=== PATIENT | male | born 1965 | race Caucasian/White ===

== ENCOUNTER → 2016-07-15 | Outpatient (CLI) | payer OTHER | END | disposition home or self-care (01) | LOC: YCFC.O 12:51 | DX: M10.9 Gout, unspecified (principal) ==

== ENCOUNTER 2020-05-08 12:17 | Emergency (ER) | payer OTHER ==
--- NOTE | 2020-05-08 13:16 | RAD ---
EXAM DESCRIPTION: Chest,1 View CLINICAL HISTORY: 55 years Male, cough, body aches COMPARISON: None. TECHNIQUE: X-ray 1 view chest upright portable FINDINGS: Lungs are clear. No consolidation. Heart normal size. IMPRESSION: Normal. Electronically signed by: Anup Palma MD 05/08/2020 1:14 PM [facility]
--- NOTE | 2020-05-08 13:34 | ED.PDOC ---
History of Present Illness - General Chief Complaint: Respiratory Problem Stated Complaint: cough, body aches Time Seen by Provider: 05/08/20 12:32 Source: patient Exam Limitations: no limitations - History of Present Illness Initial Comments: Patient is 55-year-old male presented emergency room secondary to symptoms of some cough and sore throat and mild myalgias. No real shortness of breath. Mild headache. No syncope. No chest pain. No nausea vomiting or diarrhea. Timing/Duration: 24 hours Severity: mild Improving Factors: nothing Worsening Factors: nothing Associated Symptoms: cough, loss of appetite, malaise Allergies/Adverse Reactions: Allergies NO KNOWN ALLERGY Allergy (Verified 01/03/16 22:28) Home Medications: Ambulatory Orders Allopurinol 300 mg PO DAILY 05/08/20 Atorvastatin Calcium 40 mg PO DAILY 05/08/20 Buspirone HCl 15 mg PO TID 05/08/20 FLUoxetine HCL [Prozac] 10 mg PO DAILY 05/08/20 Lisinopril 20 mg PO DAILY 05/08/20 Omeprazole 20 mg PO DAILY 05/08/20 Review of Systems - Review of Systems Constitutional: States: malaise EENTM: States: nose congestion, throat pain Respiratory: States: cough Cardiology: States: no symptoms reported Gastrointestinal/Abdominal: States: no symptoms reported Genitourinary: States: no symptoms reported Musculoskeletal: States: see HPI - Mild myalgias Skin: States: no symptoms reported Neurological: States: headache Endocrine: States: no symptoms reported Hematologic/Lymphatic: States: no symptoms reported All other Systems: No Change from Baseline Past Medical History (General) - Patient Medical History Hx Stroke: No Hx Cardiac Disorders: No Hx Congestive Heart Failure: No Hx Hypertension: Yes Hx Thyroid Disease: No Hx Diabetes: No Surgical History: other - Vaccination History Hx Tetanus, Diphtheria Vaccination: No Hx Influenza Vaccination: No Hx Pneumococcal Vaccination: No - Social History Hx Tobacco Use: Yes Hx Alcohol Use: No Hx Substance Use: No Hx Substance Use Treatment: No Hx Depression: No - Female History Patient : No Family Medical History - Family History Mother Family History: Unknown Living Status: Unknown Physical Exam - Physical Exam General Appearance: Alert, Anxious, Comfortable, No apparent distress Eye Exam: bilateral normal Ears, Nose, Throat: hearing grossly normal, nasal congestion Neck: full range of motion, supple Respiratory: lungs clear, normal breath sounds, no respiratory distress, no accessory muscle use Cardiovascular/Chest: normal peripheral pulses, regular rate, rhythm, no edema Peripheral Pulses: radial,right: 2+, radial,left: 2+ Gastrointestinal/Abdominal: non tender, soft Rectal Exam: deferred Back Exam: no CVA tenderness, no vertebral tenderness Extremity: normal range of motion, non-tender, normal inspection, no pedal edema, normal capillary refill 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 He has tested negative for strep, coronavirus and influenza. Chest x-ray is clear. Vital signs are within normal limits. He needs to keep himself well-hydrated. Motrin and Tylenol can be used for body aches and low-grade fevers. He needs to maintain a bland diet. ER warnings are given. Keep routine follow-up with primary care doctor. kalin marcano [phone] - Results/Orders Results/Orders: Rapid strep is negative Rapid coronavirus is negative Rapid flu is negative Chest x-ray is essentially clear. Departure - Departure Clinical Impression: Viral syndrome Disposition: Discharge to Home or Self Care Condition: Fair Departure Forms: ED Discharge - Pt. Copy, Patient Portal Self Enrollment Instructions: Viral Syndrome (DC) Diet: bland diet Activity: increase activity as tolerated Referrals: Rigoberto Ruano MD [Primary Care Provider] - 1-2 Weeks Home Medications: Ambulatory Orders Allopurinol 300 mg PO DAILY 05/08/20 Atorvastatin Calcium 40 mg PO DAILY 05/08/20 Buspirone HCl 15 mg PO TID 05/08/20 FLUoxetine HCL [Prozac] 10 mg PO DAILY 05/08/20 Lisinopril 20 mg PO DAILY 05/08/20 Omeprazole 20 mg PO DAILY 05/08/20 Additional Instructions: The patient is a 55-year-old male presented to emergency room with what appears to be a viral syndrome. He has tested negative for strep, coronavirus and influenza. Chest x-ray is clear. Vital signs are within normal limits. He needs to keep himself well-hydrated. Motrin and Tylenol can be used for body aches and low-grade fevers. He needs to maintain a bland diet. ER warnings are given. Keep routine follow-up with primary care doctor.
[2020-05-08 13:53] VITALS: BP 116/74; O2SAT 95
[2020-05-08 13:54] VITALS: TEMP 97.8
== END 2020-05-08 13:54 | disposition home or self-care (01) ==
LOC: ER 12:17
DX: B34.9 Viral infection, unspecified (principal); I10 Essential (primary) hypertension; Z20.828 Contact with and (suspected) exposure to other viral communicable diseases; Z87.891 Personal history of nicotine dependence; Z79.899 Other long term (current) drug therapy